=== PATIENT | female | born 1960 ===

== ENCOUNTER 2016-07-08 05:41 | Emergency (ER) | payer OTHER ==
[~2016-07-08] VITALS: Ht 144.8 cm; Wt 62.0 kg
[2016-07-08 05:47] VITALS: Ht 144.8 cm; Wt 62.0 kg
[2016-07-08] MEDS ORDERED: AZIT250T94 PO (06:23)
[2016-07-08] MEDS ORDERED: CETI10CA PO (06:23)
[2016-07-08] MEDS ORDERED: FLUT9.9S NASAL (06:23)
[2016-07-08] MEDS ORDERED: IBUP-1542 PO (06:24)
[2016-07-08] MEDS ORDERED: ACET500C5 PO (06:24)
--- NOTE | 2016-07-08 06:28 | ERD ---
ER Documentation Chief Complaint Date/Time DATE: 07/08/16 TIME: 06:26 Chief Complaint cough/sore throat/right earache x 2 weeks HPI This 55-year-old female who presents to the emergency department today complaining of cough, sore throat, right earache and intermittent fevers for the past 2 weeks. Patient states she has tried Robitussin for the cough with no improvement. Denies any nausea vomiting or diarrhea. ROS All systems reviewed and are negative except as per history of present illness. Medications Home Meds Active Scripts Acetaminophen* (Tylophen*) 500 Mg Capsule, 1 CAP PO Q6H Y for PAIN AND OR ELEVATED TEMP, #30 CAP Prov:NORMAN GIFFORD PA-C 07/08/16 Ibuprofen* (Motrin*) 600 Mg Tab, 600 MG PO Q6, #30 TAB Prov:NORMAN GIFFORD PA-C 07/08/16 Fluticasone Propionate (Flonase Allergy Relief) 9.9 [place].susp, 2 SPRAY NASAL DAILY, #1 BOTTLE TO EACH NOSTRIL Prov:NORMAN GIFFORD PA-C 07/08/16 Cetirizine Hcl* (Zyrtec*) 10 Mg Capsule, 10 MG PO DAILY, #14 TAB.CHEW Prov:NORMAN GIFFORD PA-C 07/08/16 Azithromycin* (Zithromax*) 250 Mg Tablet, 250 MG PO .ZPACK DIRECTED, #6 TAB TAKE 500 MG (2 TABS) THE FIRST DAY THEN 250 MG (1 TAB) DAYS 2-5 Prov:NORMAN GIFFORD PA-C 07/08/16 Allergies Allergies: Coded Allergies: No Known Drug Allergies (Verified Allergy, Unknown, 07/08/16) PMhx/Soc History of Surgery: No Anesthesia Reaction: No Hx Neurological Disorder: No Hx Respiratory Disorders: No Hx Cardiac Disorders: No Hx Psychiatric Problems: No Hx Miscellaneous Medical Probl: No Hx Alcohol Use: No Hx Substance Use: No Hx Tobacco Use: No Smoking Status: Never smoker Physical Exam Vitals Vital Signs Date Time Temp Pulse Resp B/P Pulse Ox O2 Delivery O2 Flow Rate FiO2 07/08/16 05:47 98.3 88 20 124/73 99 Physical Exam Const: No acute distress Head: Atraumatic Eyes: Normal Conjunctiva ENT: Ears TMs normal. Nose no drainage. Throat no erythema no exudate. Drainage posterior pharynx. Neck: Full range of motion..~ No meningismus. Resp: Clear to auscultation bilaterally. No absent breath sounds. No wheezing. Cardio: Regular rate and rhythm, no murmurs Abd: Soft, non tender, non distended. Normal bowel sounds Skin: No petechiae or rashes Neur: Awake and alert Psych: Normal Mood and Affect Procedures/MDM This 55-year-old female who presents the emergency department today with symptoms consistent with a URI. Patient is afebrile and otherwise well- appearing. Her oxygen saturation is 91%. She is not tachycardic. I do not feel the patient requires a chest x-ray at this time. Given the patient's duration of cough however I will give her a prescription for azithromycin to treat possible bronchitis. Low suspicion for pneumonia, PE, abscess, pneumothorax, influenza. low suspicion for strep pharyngitis, peritonsillar abscess, retropharyngeal abscess, otitis media, sinusitis, abscess, meningitis , sepsis, or other acute infectious bacterial process. . Patient will be given a prescription for Zyrtec, Flonase as well as Tylenol and Motrin for any pain or fever. At this time the patient is stable for discharge and outpatient management. Patient should follow up with their PCP in the next 1-2 days. They may return to the emergency department sooner for any persistent or worsening of symptoms. Patient understood and agreed with the plan. Departure Diagnosis: Primary Impression: URI (upper respiratory infection) URI type: unspecified URI Qualified Code: J06.9 - Upper respiratory tract infection, unspecified type Condition: Fair Patient Instructions: Preventing Common Respiratory Infections [facility] Usted se bbo hecho un examen mdico de control que le indica que no est en sadiq condicin que requiera tratamiento urgente en el Departamento de Emergencia. Un estudio ms profundo y el tratamiento de bain condicin pueden esperar sin ningn riesgo hasta que usted sea atendida/o en el consultorio de bain mdico o sadiq cl elisabeth. Es responsabilidad suya arreglar sadiq adry para el seguimiento del gerhard. MANEJO DE CONDICIONES NO URGENTES EN EL FUTURO 1) Si usted tiene un mdico de atencin primaria: Usted debera llamar a bain mdico de atencin primaria antes de venir al departamento de emergencia. Despus de las horas de consultorio, bain doctor o bain asociado/a est disponible por telfono. El mdico o enfermero de gamal en el servicio telefnico puede asesorarle por yin medio para atender el problema, o gerhard contrario se puede programar sadiq adry. 2) Si usted no tiene un mdico de atencin primaria: Llame al mdico o clnica de referencia que aparece abajo grady las horas de consultorio para hacer sadiq adry para que le vean. CLINICAS: [facility] [phone] [facility] [facility] [phone] [facility] [facility] [phone] [address] [facility]. [place] [id number] [phone] [facility]. [place] [id number] [phone] [facility]. [phone] [address] Additional Instructions: Llame al doctor MAANA y iman sadiq ADRY PARA DENTRO DE 1-2 ALVARADO.Dgale a la secretaria que nosotros le instruimos hacer esta adry.Avise o llame si bain condicin se empeora antes de la adry. Regresa aqui si peor o no mejor. Take Tylenol or Motrin for pain or fever Take antibiotics as prescribed Take all other medications as prescribed NORMAN GIFFORD PA-C Jul 08, 2016 06:28
== END 2016-07-08 06:31 | disposition home or self-care (01) ==
LOC: FTE 05:41
DX: J06.9 Acute upper respiratory infection, unspecified (principal)
CPT/HCPCS: 99283

== ENCOUNTER 2017-02-15 06:54 | Emergency (ER) | END 2017-02-15 07:51 | disposition home or self-care (01) | DX: R21 Rash and other nonspecific skin eruption (principal) | CPT/HCPCS: 96372; J1100; Z7502; Z7610 ==

== ENCOUNTER 2017-12-02 20:51 | Emergency (ER) | END 2017-12-02 23:46 | disposition home or self-care (01) ==